=== PATIENT | male | born 1980 | race Caucasian/White ===

== ENCOUNTER 2020-01-23 15:25 | Emergency (ER) | payer BC ==
[~2020-01-23] VITALS: Ht 177.8 cm; Wt 77.1 kg
[2020-01-23] MEDS ORDERED: ALPRAZOLAM0.5 MG PO (15:40)
[2020-01-23] MEDS ORDERED: ONDANSETRON HCL4 MG PO (15:40)
[2020-01-23] MEDS ORDERED: NORCO 5-325 TA1 EACH PO (18:22)
[2020-01-23] MEDS ORDERED: FLOMAX0.4 MG PO (18:22)
[2020-01-23] MEDS ORDERED: ONDANSETRON ODT4 MG PO (18:22)
== END 2020-01-23 18:37 | disposition home or self-care (01) ==
LOC: ED 15:25
DX: N13.2 Hydronephrosis with renal and ureteral calculous obstruction (principal); Z88.0 Allergy status to penicillin; Z79.899 Other long term (current) drug therapy
CPT/HCPCS: 74176; 80053; 81001; 85025; 96374; 96375; 96376; 99284-25; J1885; J2405